=== PATIENT | male | born 1985 | race African-American/Black ===

== ENCOUNTER 2025-03-25 13:01 | Outpatient (AMB) | payer MEDICAID, SELFPAY ==
[2025-03-25 13:05] VITALS: BMI 31.6
--- NOTE | 2025-03-25 13:05 | A.PHYSOV_ITS ---
Vital Signs 03/25/25 13:05 Height 5 ft 10 in Weight 220 lb BMI 31.6 Intake Visit Reasons: NPV NEOS REF- EVAL LUMBAR SPONDYLOSIS Intake Note: Patient is a 39 year old male here today for a new patient consult regarding spondylosis of lumbar spine. Injury in 2010 while at work, which did resolve. Re-injured in [employer] [facility] [employer] [facility] at work but now has been terminated from that job and no workers comp was filed at the time. Allergies No Known Allergies Allergy (Verified 03/25/25 13:10) HPI Comments Details: History of Present Illness The patient is a 39-year-old male presenting with chronic low back pain. The back pain began in 2010 following a work-related injury and has progressively worsened over time. In June of this year, the patient experienced an exacerbation of the pain due to an attack at work. An MRI revealed a lumbar disc bulge, and the patient underwent physical therapy for 6 week, which was ineffective. The patient has been advised to consider lower back surgery but is apprehensive about the procedure. 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 Activities such as raking leaves and shoveling snow exacerbate the pain. The patient also reports erectile dysfunction, which he attributes to possible nerve damage related to his back condition. He has not yet consulted a urologist for this issue. Current pain management includes gabapentin and diclofenac, with pain levels varying from 1 to 6 on a scale of 6 today. The patient experiences pain radiating to both legs, without a consistent pattern of laterality. I reviewed the referring provider's no prior to consultation. Pain Description - Onset: Began in 2010 after a work-related injury - Quality: Chronic, worsening over time - Location: Lower back, radiating to both legs - Exacerbating factors: Physical activities such as raking leaves and shoveling snow - Pain scale: Ranges from 1 to 6 out of 10 Results - Imaging: MRI lumbar spine 10/19/2024 impression: L4-5 there is a disc bulge with superimposed left foraminal disc protrusion impinging on the transitioning the left L4 nerve root. Correlation clinically for left lower extremity radicular complaint. [facility] Surgical History H/O hand surgery (Unknown) H/O foot surgery (Unknown) History of ankle surgery (Unknown) Social History Unable to assess alcohol history related to: Unknown Alcohol intake: current Alcohol intake frequency: does not drink Patient Tobacco Use Status: Never used Tobacco Review of Systems Narrative Review of Systems - Musculoskeletal: Reports chronic low back pain, radiating to both legs - Neurological: Reports erectile dysfunction, denies consistent pattern of pain laterality Physical Exam Exam Exam: Physical Exam Lumbar Spine: Examination of her lumbar spine, there is no visible swelling or deformity. He is tender to lower lumbar facets. He has full range of motion of his lumbar spine. He does have an increase in pain with facet loading. Special Tests: Lhermittes sign was negative Heel Toe walk is normal Left straight leg raise: Positive left Right straight leg raise: Negative Special tests Charlee test is negative Ganslen's test is negative SI Joint compression test negative Milo test negative Piriformis stretch is negative Lower Extremities: Full range of motion bilateral lower extremities. No calf pain or edema. Neuro: Sensation: Intact to lower extremities bilaterally Strength L2 (Psoas): 5/5 on the left and 5/5 on the right. L3 (Quads): 5/5 on the left and 5/5 on the right. L4 (Ant tibialis): 5/5 on the left and 5/5 on the right. L5 (EHL) 5/5 on the left and 5/5 on the right. S1 (Gastroc): 5/5 on the left and 5/5 on the right. DTR L4: (Patellar) Left 2 Right 1 S1: (Achilles) Left 2 Right 2 Babinski Downgoing No pathologic clonus. No involuntary movement. Vital Signs: BMI result Body Mass Index 31.6 Assessment & Plan Assessment & Plan (1) Radiculopathy, lumbar region: Code(s): M54.16 - Radiculopathy, lumbar region Category: Medical (2) Spondylosis: Code(s): M47.9 - Spondylosis, unspecified Category: Medical (3) Erectile dysfunction: Code(s): N52.9 - Male erectile dysfunction, unspecified Category: Medical Qualifiers: Erectile dysfunction type: unspecified Qualified Code(s): N52.9 - Male erectile dysfunction, unspecified Plan Pain Management - Affect: Pain impacts ability to perform physical labor, leading to career change - Analgesia: Current medications include gabapentin and diclofenac; pain levels vary from 1 to 6 - Adverse Effects: No specific adverse effects discussed - Activities of Daily Living: Pain limits ability to perform tasks such as raking leaves and shoveling snow - Aberrant Drug Related Behaviors: No aberrant behaviors reported Plan Patient was informed and verbally consented to the use of an ambient scribe for clinic note documentation during this visit. 1. Chronic Low Back Pain The patient is experiencing chronic low back pain, initially caused by a work- related injury in 2010, which has progressively worsened. An MRI revealed a lumbar disc bulge, and physical therapy was attempted without success. He has failed conservative treatment. I recommend L5-S1 MELINDA he is eager to proceed. We will obtain prior authorization for his injection and contact him once we have done so. 2. Erectile Dysfunction The patient reports erectile dysfunction, which he suspects may be related to nerve damage from his back condition. There is no evidence of nerve compression affecting the groin area, suggesting the issue may not be directly related to the lumbar condition. The patient plans to consult a urologist for further evaluation and management. Discussion Notes During the consultation, we discussed the patient's chronic low back pain and the potential benefits and limitations of a cortisone injection. I explained that the injection would not cure the condition but could reduce inflammation and provide temporary relief for three to six months. We also discussed the risks associated with the procedure, including infection and nerve damage, and the importance of avoiding activities that could worsen the condition. Regarding the patient's erectile dysfunction, I noted that there was no evidence of nerve compression affecting the groin area and recommended a consultation with a urologist for further evaluation. Patient Instructions - Avoid heavy lifting and exercises that may exacerbate back pain. - Schedule a consultation with a urologist for erectile dysfunction evaluation. Coding Level of Care Code Tele New Pt Level 4 (16285) Diagnoses Radiculopathy, lumbar region M54.16 Spondylosis M47.9 Erectile dysfunction, unspecified erectile dysfunction type N52.9 Erectile dysfunction type: unspecified
--- OUTSIDE RECORDS SUMMARY | 2025-03-25 15:42 | XMS_ITS | Clinical Summary ---
Author Organization [facility] Address [address] [place] [id number] Phone Care Team Providers Care Professional Driver Name Role Phone Unavailable Primary Care Provider Unavailabl e Social History Tobacco Use Types Packs/Day Years Used Date Smoking Tobacco: Never Assessed Education Answer Date Recorded Are you interested in more education? Not on wil e 09/09/2022 Are you concerned about learning? Not on file 09/09/2022 No 09/09/2022 No 09/09/2022 Digital Access Answer Date Recorded No 10/10/2022 No 10/10/2022 Reliable internet access at home? Not on file 10/10/2022 Device with a working camera? Not on file Comments Unknown Sex and Gender Information Value Date Recorded Sex Assigned at Not on file Legal Sex Unknown 06/07/2021 12:24 PM EST Gender Identity Not on file Sexual Orientation Not on file Plan of Treatment Not on file Medical Devices Not on file Additional Source Comments The information contained in this document represents components of the legal health record. It is not the complete legal health record.[facility]
--- OUTSIDE RECORDS SUMMARY | 2025-03-25 15:42 | XMS_ITS | Encounter Summary ---
Author Organization [facility] Address [address] [place] [address] Care Team Providers Care Diamond Wheel Molder Name Role Phone Marnie Santiago PA-C Primary Care Provider [phone] Encounter Details Date Type Department Care Team ([facility] st Contact Info) Description 03/20/2025 Interim Notes [address] [id number] Zarina Seg[address] [address] Social History Tobacco Use Types Packs/Day Years Used Date Smoking Tobacco: Never Smokeless Tobacco: Never Alcohol Use Standard Drinks/Week Comments Never 0 (1 standard drink = 0.6 oz pur e alcohol) Social Connections Answer Date Recorded Connectedness 0 11/27/2022 Financial Resource Strain Answer Date R ecorded Financial Resource Strain 0 2022 Stress Answer Date Recorded Stress 0 11/27/2022 Physical Activity Answer Date Recorded Physical Activity 0 01/05/2019 Food Insecurity Answer Date Recorded Food 0 11/27/2022 Transportation Needs Answer Date Record ed Transportation 0 11/27/2022 Housing Stability Answer Date Recorded Housing 0 11/27/2022 Safety and Environment Answer Date Farhad rded Safety 0 11/27/2022 Utilities Answer Date Recorded Utilities 0 11/27/2022 Employment Answer Date Recorded Employment 0 01/05/2019 Sex and Gender Information Value Date Recorded Sex Assigned at Male 05/25/2020 5:28 PM PST Legal Sex Male 10:11 AM PDT Gender Identity Male 05/25/2020 5:28 PM PST Sexual Orientation Straight 05/25/2020 5: 28 PM PST documented as of this encounter Progress Notes * Zarina Segura MA - 03/20/2025 5:37 PM EST You have successfully submitted the Referral for BENY OWEN . The following Referral Authorization Number should be retained in your records. Referral Authorization # [id number] Number of Visits 99 [id number] documented in this encounter Plan of Treatment Not on file documented as of this encounter Visit Diagnoses Not on filedocumented in this encounter Additional Health Concerns Assessment Noted Time PHQ-9 Depression Total Score: 19 025 9:12 AM PDT A Depression follow-up plan has been documented for the patient 03/02/2025 12:01 PM PDT PHQ-2 Depression Total Score: 6 10/14/19 25 9:12 AM PDT documented as of this encounter Care Teams Diamond Wheel Molder Relationship Specialty Start Date End Date Marnie Santiago PA-C [address] [place] [id number] PCP - General Primary Care 12/13/23 documented as of this encounter
--- OUTSIDE RECORDS SUMMARY | 2025-03-25 15:42 | XMS_ITS | Clinical Summary ---
Author Organization [employer] Address [address] [place] [address] Care Team Providers Care Vigoureux Printer Name Role Phone Unavailable Primary Care Provider Unavailabl e Social History Tobacco Use Types Packs/Day Years Used Date Smoking Tobacco: Never Assessed Sex and Gender Information Value Date Recorded Sex Assigned at Not on file Legal Sex Male 2:27 AM EDT Gender Identity Not on file Sexual Orientation Not on file Plan of Treatment Health Maintenance Due Date Last Done Comments Depression Screening 1986 Lipid Panel 1986 SDOH Screening 1986 Disability Screening 1986 Alcohol/Substance Use Screening 1998 Tobacco Screening 1998 Family Planning (PISQ) 2001 HPV Vaccines (1 - Male 3-dose series) 2001 Hepatitis C Screening 2004 COVID-19 Vaccine ( season) 2025 Influenza Vaccine (#1) 2025 , 04/29/2021, 06/17/2018 DTaP/Tdap/Td Vaccines (4 - Td or Tdap) 07/27/2032 07/27/2022, 10/14/2021, 06/17/2018 Zoster Vaccines (1 of 2) 2036 RSV Patients and Patients Aged 60 years or older (1 - 1-dose 75+ series) 2061 Hepatitis B Vaccines Completed 08/28/2022, 07/28/19 HIV Screening Completed 12/24/2024, 10/13, 10/13/2024, Additional history exists HIB Vaccines Aged Out No longer eligi ble based on patient's age to complete this topic Hepatitis A Vaccines Aged Out No long er eligible based on patient's age to complete this topic IPV Vaccines Aged Out No longer eligi ble based on patient's age to complete this topic Meningococcal B Vaccine Aged Out No l onger eligible based on patient's age to complete this topic Meningococcal Vaccine Aged Out No tanvir carmen eligible based on patient's age to complete this topic Pneumococcal Vaccine: Pediatrics (0 to 5 Years) and At-Risk Patients (6 to 49) Years Aged Out No longer eligible based on patient's age to complete this topic RSV under 20 months Aged Out No longe r eligible based on patient's age to complete this topic Rotavirus Vaccines Aged Out No longer eligible based on patient's age to complete this topic
--- OUTSIDE RECORDS SUMMARY | 2025-03-25 15:42 | XMS_ITS | Clinical Summary ---
Author Organization [facility] Address [address] [place] [address] Care Team Providers Care Director Financial Systems Name Role Phone Marnie Santiago PA-C Primary Care Provider [phone] Source Comments PLEASE NOTE, if this patient is a minor, it may be UNLAWFUL to discuss sensitive information that is contained in these records (such as FAMILY PLANNING, MENTAL HEALTH or SUBSTANCE ABUSE) with the minor patient's parent or other person without the patient's specific authorization.[facility] Allergies No known active allergies Medications acetaminophen (TYLENOL) 500 mg tabletIndicatio ns:Left lower quadrant abdominal pain Take 1 Tablet by mouth every 6 (six) hours as needed for pain 40 Tablet 2 Active pantoprazole (PROTONIX) 40 mg EC tabletIndicatio ns:Gastroesopha geal reflux disease without esophagitis Take 1 Tablet by mouth every morning before breakfast 90 Tablet 3 Active escitalopram (LEXAPRO) 10 mg tabletIndicatio ns:Irritable bowel syndrome with diarrhea Take 1 Tablet by mouth once daily 90 Tablet 1 3 Active hydrOXYzine HCL (ATARAX) 10 mg tablet Take 10 mg by mouth 3 (three) times daily. 5 Active ARIPiprazole (ABILIFY) 5 mg tablet Take 5 mg by mouth nightly at bedtime. 5 Active celecoxib (CELEBREX) 200 mg capsule Take 200 mg by mouth once daily. 5 Active sildenafiL (VIAGRA) 100 mg tabletIndicatio ns:Erectile dysfunction, unspecified erectile dysfunction type Take 1 Tablet by mouth once daily as needed for erectile dysfunction. 10 Tablet 5 5 Active emtricitabine-t enofovir, TDF, (TRUVADA) 200-300 mg per tablet Take 1 Tablet by mouth once daily. 90 Tablet 5 Active diclofenac sodium (VOLTAREN) 1 % gelIndications: Chronic lumbosacral pain APPLY 4 G TOPICALLY 2 (TWO) TIMES DAILY. 200 g 5 Active gabapentin (NEURONTIN) 300 mg capsuleIndicati ons:Chronic lumbosacral pain Take 1 Capsule by mouth 2 (two) times daily as needed for other reason (pain). 60 Capsule 1 5 Active ibuprofen 400 mg tabletIndicatio ns:Chronic lumbosacral pain Take 1 Tablet by mouth 4 (four) times daily as needed for pain. 60 Tablet 5 03/02/20 25 Discontinu ed(Cancell ed) Active Problems Problem Noted Date Diagnosed Date Elevated LDL cholesterol level 10/15/2024 Mixed hyperlipidemia 04/03/2023 Food insecurity 11/27/2022 Financial difficulties 11/27/2022 Closed fracture of right talus 06/01/2021 Galeazzi's fracture of right radius, initial encounter for open fracture type I or II 06/01/2021 Open dislocation of metacarp ophalangeal joint of right thumb 06/01/2021 Chronic lumbosacral pain 10/12/2020 Overview (10/22/2024): MRI Lumbar Spine W/O ContrastResult date:10/19/2024 RESULT: MRI Lumbar Spine W/O Contrast MRI Lumbar Spine W/O Contrast INDICATION: Reason: M54.50 CHRONIC LUMBOSACRAL PAIN; Clinical Question(s): Other: Other: TECHNIQUE: MRI of the lumbar spine was performed without intravenous contrast utilizing sagittal T1, sagittal T2, sagittal STIR, axial T1, and axial T2- weighted sequences. COMPARISON: X-ray 05/25/2020 FINDINGS: LOCALIZER: No additional findings on limited localizer images. NUMBERING: The study assumes 5 [id number] lumbar type vertebral bodies. ALIGNMENT, VERTEBRAE, MARROW, AND DISCS: Alignment is normal. Vertebral body heights are preserved. There is no significant marrow signal abnormality. There is mild loss of disc space height along with disc desiccation at L5-S1 with small endplate osteophyte. CONUS: The conus is normal in signal and contour, with normal level of termination at L1. PARASPINAL TISSUES: The paraspinal soft tissues are unremarkable. DETAILED FINDINGS BY LEVEL: L1-L2: No disc protrusion, central canal stenosis, or foraminal narrowing. L2-L3: No disc protrusion, central canal stenosis, or foraminal narrowing. L3-L4: No disc protrusion, central canal stenosis, or foraminal narrowing. L4-L5: There is a diffuse circumferential disc bulge asymmetric to the left with a small superimposed left foraminal disc protrusion which is impinging the transiting left L4 nerve root. No central canal stenosis. The right foramen is patent. L5-S1: There is a circumferential disc bulge with a superimposed shallow central disc protrusion. No mass effect on either S1 nerve root or central canal stenosis. No significant foraminal narrowing. IMPRESSION: At L4-5, there is a disc bulge with a superimposed left foraminal disc protrusion impinging the transiting left L4 nerve root. Correlate clinically for left lower extremity radicular complaint. At L5-S1, there is a shallow central disc protrusion without central canal stenosis or foraminal encroachment. Other levels show no significant degenerative pathology. Erectile dysfunction 07/30/2020 Overview (12/27/2022): Seeing Urology Got started on Cialis 20mg Testerone, PSA levels pending with Urology Assessment & Plan (12/25/2022 2:26 PM EDT): Urology following Viagra 100mg PRN LDL 160 and BMI 30 in 2022 which could be contributing to symptoms. Anxiety 05/25/2020 IBS (irritable bowel syndrome) 05/25/2020 Overview (12/27/2022): H pylori negative 12/2022 Chronic lower back pain 05/25/2020 Encounters Date Type Department Care Team Description 03/20/2025 Interim Notes [facility] [address] [place] [address] Zarina Segura MA 03/02/2025 10:20 AM EDT Office Visit [facility] [address] [place] [phone] Steven Adrian NP 12/24/2024 9:40 AM EDT Telemedicine Visit [facility] [address] [place] [phone] Meredith Pascal FNP-C from Last 3 Months Immunizations Immunization Administration Dates Next Due Flu, Cell Culture based, Pre servative Free, 6m+, Flucelvax 06/17/2018 Flu, Preservative Free 07/27/2022 Hep B,adult,adjuvanted (HEPLISAV) 08/28/2022, INFLUENZA, SEASONAL, INJECTABLE 04/29/2021 MMR (MMR II/Priorix) 08/28/2022,07/28/19 23,10/14/2021,2018 TDAP 07/27/2022,10/14/2021,06/17/2018 Varicella (Varivax), Live Vaccine 08/28/2022, Family History Medical History Relation Name Comments No Known Problems Mother Relation Name Status Comments Brother Alive 4 Father Alive asthma Mother Alive Sister Alive 4, 2 of them wi th belly symtopms Social History Tobacco Use Types Packs/Day Years Used Date Smoking Tobacco: Never Smokeless Tobacco: Never Tobacco Cessation:Counseling Given: Not Answered Alcohol Use Standard Drinks/Week Comments Never 0 [...] Orientation Straight 05/25/2020 5: 28 PM PST Last Filed Vital Signs Vital Sign Reading Time Taken Comments Blood Pressure 125/84 03/02/2025 10:21 AM EDT Pulse 85 03/02/2025 10:21 AM EDT Temperature 36.7 C (98 F) 03/02/2025 10:21 AM EDT Respiratory Rate 16 03/02/2025 10:21 AM EDT Oxygen Saturation 96% 03/02/2025 10:21 AM EDT Inhaled Oxygen Concentration - - Weight 101.6 kg (224 lb) 03/02/2025 10:21 AM EDT Height 177.8 cm (5' 10 ) 03/02/2025 10:21 AM EDT Body Mass Index 32.14 03/02/2025 10:21 AM EDT Plan of Treatment Health Maintenance Due Date Last Done Comments Dental FMX/Pano 1986 Dental BW 11/25/2023 11/22/2022 Dental Examination 11/25/2023 11/22/2022 Dental Perio Charting 11/25/2023 11/22/2022 Dental Prophy 11/30/2023 11/27/2022 Imm-HPV (2 - 3-dose SCDM series) 11/10/2024 10/14/19 [id number] ( season) 2025 04/29/2021, 09/22/2020, 08/25/2020 Imm-Influenza (#1) 2025 07/27/2022, 1 06/30/2020, 06/17/2018 Depression Monitoring 01/13/2025 10/13/2024 , 06/27/2022, 05/25/2020 Annual Wellness (Adult): Indicated (All Coverage) 10/13/2025 10/13/2024, 10/13/2024, 06/27/2022, Additional history exists Anxiety Screening 10/13/2025 10/13/2024 Diabetes Screening 10/13/2025 10/13/2024, 0 10/13/2024, 06/27/2022, Additional history exists Lipid Screening 12/24/2025 12/24/2024, 06/0 06/2024, 06/27/2022, Additional history exists Hypertension Screening (#1) 03/02/2026 Tobacco Screening 03/02/2026 03/02/2025 Imm-DTaP/Tdap/Td (4 - Td or Tdap) 07/27/2032 07/27/2022, 10/14/2021, 06/17/2018 Alcohol and Drug Screen Completed 10/14/19, 06/27/2022, 05/25/2020 Hepatitis C Screening Completed 10/13/2024 , 11/27/2022, 05/25/2020 HIV Screening Completed 12/24/2024, 062 08/2024, 10/13/2024, Additional history exists Syphilis Screening Discontinued 12/24/2024, 0 10/13/2024, 11/27/2022, Additional history exists Procedures Procedure Name Priority Date/Time Associated Diagnosis Comments URINE CULTURE W ID & SENS Routine 12/24/2024 10:04 AM EDT LIPID PANEL Routine 12/24/2024 10:04 AM EDT RFLX - REFLEXIVE URINE CULTURE Routine 12/24/2024 10:04 AM EDT URINALYSIS, COMPLETE W/REFLEX TO CULTURE Routine 12/24/2024 10:04 AM EDT HIV 1/2 AG & AB W/RFLX (4TH GEN) Routine 12/24/2024 10:04 AM EDT Screen for STD (sexually transmitted disease) Hx of chlamydia infection RPR (MONITOR) W/REFL TITER Routine 12/24/2024 10:04 AM EDT Screen for STD (sexually transmitted disease) Hx of chlamydia infection C TRACHOMATIS/N GONORRHOEAE RNA,TMA Routine 12/24/2024 10:04 AM EDT Screen for STD (sexually transmitted disease) Hx of chlamydia infection HEPATITIS C AB W/RFLX HCV RNA, QT, RT PCR Routine 10/13/2024 9:46 AM EDT Unprotected sexual intercourse HGBA1C W/MPG Routine 10/13/2024 9:46 AM EDT Annual physical exam Full PROPHYLAXIS - ADULT Routine 11/27/2022 3:40 PM EDT Chronic gingivitis, plaque induced COMP PERIODONTAL EVALUATION - NEW/EST PATIENT Routine 11/22/2022 3:40 PM EDT Caries of enamel (incipient) Caries BITEWINGS - FOUR RADIOGRAPHIC IMAGES Routine 11/22/2022 3:40 PM EDT Caries of enamel (incipient) Caries Full PERIODIC ORAL EVALUATION ESTABLISHED PATIENT Routine 11/22/2022 3:40 PM EDT Caries of enamel (incipient) Caries from Last 3 Months or Most Recently Relevant to Health Maintenance Results * HIV 1/2 AG & AB W/RFLX (4TH GEN) Routine (12/24/2024 10:04 AM EDT) HIV Screen Final SEE NOTE 12/25/2024 4:56 AM EDT [facility] HIV AG/AB, 4TH GEN NON-REACT LESLY NON-REACT LESLY 12/25/2024 4:56 AM EDT [facility] Blood Blood / Unknown 12/24/2024 1 0:04 AM EDT 12/25/2024 2:47 AM EDT Narrative [employer] - 12/25/2024 5:20 AM EDT HIV Negative . HIV-1 antigen and HIV-1/HIV-2 antibodies were not detected. There is no laboratory evidence of HIV infection. Meredith Pascal [facility] - BLOOD DRAW Final Re sult [employer] [address] [place] [address], [facility] [address] [place] [phone] * CHLAMYDIA/NEISSERIA GONORRHOEAE RNA, TMA, UROGENITAL Urine Urine Routine (12/24/2024 10:04 AM EDT) CHLAMYDIA TRACHOMATIS RNA, TMA NOT DETECTED NOT DETECTED 12/25/2024 7:04 PM EDT [facility] NEISSERIA GONORRHOEAE RNA, TMA NOT DETECTED NOT DETECTED 12/25/2024 7:04 PM EDT [facility] Urine Urine specimen / Unknown 12/24/2024 10:04 AM EDT 12/25/2024 7:02 [address] [facility] - 12/25/2024 7:13 PM EDT The analytical performance characteristics of this assay, when used to test SurePath(TM) specimens have been determined by [employer]. The modifications have not been cleared or approved by the FDA. This assay has been validated pursuant to the CLIA regulations and is used for clinical purposes. . For additional information, please refer to https://education.HeyStaks/faq/WAD560 (This link is being provided for information/ educational purposes only.) . [employer] [facility] BODY FLUIDS AND STOOL S AMBULATORY Final Result Performing Organization Address [facility] de Phone Number [employer] [address] [place] [address], [email or web address] [address] [phone] * URINE CULTURE W ID & SENS Routine (12/24/2024 10:04 AM EDT) Micro Number [id number] 12/25/2024 10:19 PM EDT [facility] SPECIMEN QUALITY Adequate 12/25/2024 10:19 PM EDT [facility] SOURCE: URINE 12/25/2024 10:19 PM EDT [facility] STATUS: FINAL 12/25/2024 10:19 PM EDT [facility] RESULT No Growth 12/25/2024 10:19 PM EDT [facility] 12/24/2024 10:0 4 AM EDT 12/24/2024 10:04 AM EDT [employer] [facility] - MICROBIOLOGY AMBULA TORY Final Result Performing Organization Address [facility] Co de Phone Number [employer] [address] [address], [place] [email or web address] [address] [address] * (ABNORMAL) URINALYSIS, COMPLETE W/REFLEX TO CULTURE Routine (12/24/2024 10:04 AM EDT) COLOR YELLOW YELLOW 12/25/2024 3:17 AM [email or web address] [facility] APPEARANCE CLEAR CLEAR 12/25/2024 3:17 AM [email or web address] [place] [facility] SPECIFIC GRAVITY 1.023 1.001 - 1.035 12/25/2024 3:17 AM [employer] [facility] URINE PH 5.5 5.0 - 8.0 12/25/2024 3:17 AM [employer] [place] GLUCOSE NEGATIVE NEGATIVE 12/25/2024 3:17 AM [email or web address] [facility] BILIRUBIN NEGATIVE NEGATIVE 12/25/2024 3:17 AM [employer] [place] KETONES NEGATIVE NEGATIVE 12/25/2024 3:17 AM [employer] [facility] OCCULT BLOOD NEGATIVE NEGATIVE 12/25/2024 3:17 AM [employer] [facility] URINE PROTEIN NEGATIVE NEGATIVE 12/25/2024 3:17 AM [employer] [facility] NITRITE NEGATIVE NEGATIVE 12/25/2024 3:17 AM [employer] [facility] LEUKOCYTE ESTERASE 1+(A) NEGATIVE 12/25/2024 3:17 AM [employer] [facility] URINE LEUKOCYTES NONE SEEN 0 - 5 /HPF 12/25/2024 3:17 AM [employer] [facility] RBC NONE SEEN 0 - 2 /HPF 12/25/2024 3:17 AM [employer] [facility] SQUAMOUS EPITHELIAL CELLS NONE SEEN < OR = 5 /HPF 12/25/2024 3:17 AM [employer] [facility] BACTERIA NONE SEEN NONE SEEN /HPF 12/25/2024 3:17 AM [employer] [place] HYALINE CAST NONE SEEN NONE SEEN /LPF 12/25/2024 3:[address] [facility] SEE NOTE SEE NOTE 12/25/2024 3:[address] [facility] 12/24/2024 10:0 4 AM EDT 12/25/2024 2:55 AM EDT [employer] [facility] - 12/25/2024 3:17 AM EDT This urine was analyzed for the presence of WBC, RBC, bacteria, casts, and other formed elements. Only those elements seen were reported. . . [employer] LAB URINE AMBULATORY Glo l Result Performing Organization Address [facility]/ZIP Co de Phone Number LS[address] [address], [email or web address] [address] [address] * RFLX - REFLEXIVE URINE CULTURE Routine (12/24/2024 10:04 AM EDT) REFLEXIVE URINE CULTURE SEE NOTE 12/25/2024 3:17 AM EDT [facility] 12/24/2024 10:0 4 AM EDT 12/25/2024 2:55 AM [address]T [address] [facility] - 12/25/2024 3:17 AM EDT CULTURE INDICATED - RESULTS TO FOLLOW [facility] LAB - MICROBIOLOGY AMBULA TORY Final Result Performing Organization Address [facility] de Phone Number LS[address] [address], [email or web address] [address] [address] * RPR (MONITOR) W/REFL TITER Routine (12/24/2024 10:04 AM EDT) RPR (MONITOR) W/REFL TITER NON-REACT LESLY NON-REACT LESLY 12/25/2024 11:23 AM EDT [facility] Blood Blood / Unknown 12/24/2024 1 0:04 AM EDT 12/25/2024 2:55 AM EDT [employer] LAB - BLOOD DRAW Final Re sult Performing Organization Address [facility] Co de Phone Number LS[address] [address], [email or web address] [address] [address] * (ABNORMAL) LIPID PANEL Routine (12/24/2024 10:04 AM EDT) CHOLESTEROL, TOTAL 216(H) <200 mg/dL 12/25/2024 3:53 AM EDT LS[facility] HDL CHOLESTEROL 41 > OR = 40 mg/dL 12/25/2024 3:53 AM EDT [facility] TRIGLYCERIDES 191(H) <150 mg/dL 12/25/2024 3:53 AM EDT [facility] LDL-CHOLESTEROL 142(H) mg/dL (calc) 12/25/2024 3:53 AM EDT [facility] CHOL/HDLC RATIO 5.3(H) <5.0 (calc) 12/25/2024 3:53 AM EDT LS[facility] NON-HDL CHOLESTEROL 175(H) <130 mg/dL (calc) 12/25/2024 3:53 AM EDT [facility] 12/24/2024 10:0 4 AM EDT 12/25/2024 2:32 AM EDT Narrative [facility] - 12/25/2024 3:54 AM EDT Reference range: <100 . Desirable range <100 mg/dL for primary prevention; <70 mg/dL for patients with CHD or diabetic patients with > or = 2 CHD risk factors. . LDL-C is now calculated using the Lauro-Chuy calculation, which is a validated novel method providing better accuracy than the Friedewald equation in the estimation of LDL-C. Lauro SS et al. OSWALDO. 2013;310(19): 9914-2427 (http://education.[employer]/faq/BRQ491) For patients with diabetes plus 1 major ASCVD risk factor, treating to a non-HDL-C goal of <100 mg/dL (LDL-C of <70 mg/dL) is considered a therapeutic option. us Meredith Pascal [facility] LAB - BLOOD DRAW Final Re sult LS9 [address] [address], [address] [address] * HEPATITIS C AB W/RFLX HCV RNA, QT, RT PCR Routine (10/13/2024 9:46 AM EDT) HEPATITIS C ANTIBODY NON-REACT LESLY NON-REACT LESLY [facility] Comment: HCV antibody was non-reactive. There is no laboratory evidence of HCV infection. In most cases, no further action is required. However, if recent HCV exposure is suspected, a test for HCV RNA (test code 17835) is suggested. For additional information please refer to http://education.HeyStaks/faq/RQO35b5 (This link is being provided for informational/ educational purposes only.) Blood Blood / Unknown 10/13/2024 9 :46 AM EDT 10/13/2024 9:47 AM EDT Marnie Santiago PA-C LAB - BLOOD DRAW Edited Res ult - Final [employer] [address] [address], [facility] [address] [place] [address] * HGBA1C W/MPG Routine (10/13/2024 9:46 AM EDT) Pathologist [facility] HEMOGLOBIN A1C 5.6 <5.7 % [facility] Comment: For the purpose of screening for the presence of diabetes: <5.7% Consistent with the absence of diabetes 5.7-6.4% Consistent with increased risk for diabetes (prediabetes) > or =6.5% Consistent with diabetes This assay result is consistent with a decreased risk of diabetes. Currently, no consensus exists regarding use of hemoglobin A1c for diagnosis of diabetes in children. According to [place] Diabetes Association (ADA) guidelines, hemoglobin A1c <7.0% represents optimal control in non- diabetic patients. Different metrics may apply to specific patient populations. Standards of Medical Care in Diabetes(ADA). MEAN PLASMA GLUCOSE 122 mg/dL (calc) [facility] Blood Blood / Unknown 10/13/2024 9 :46 AM EDT 10/13/2024 9:47 AM EDT Marnie Santiago PA-C LAB - BLOOD DRAW Edited Res ult - Final [facility] [address] [address], [facility] [address] [place] [address] from Last 3 Months or Most Recently Relevant to Health Maintenance Insurance [place] NET D[employer] [address] [employer] Care Teams Director Financial Systems Relationship Specialty Start Date End Date Marnie Santiago PA-C [address] [place] [address] PCP - General Primary Care 12/13/23
--- OUTSIDE RECORDS SUMMARY | 2025-03-25 15:42 | XMS_ITS | Data Portability ---
Author Organization JUDA[facility] Ramos s, [address] Address [address] [place] [address] Assessment No assessment recorded. Plan of Treatment Reminders Order Date Submit Date Provider Last Modified By Organization Details Last Modified Time Details Appointments None recorded. Lab None recorded. Referral None recorded. Procedures None recorded. Surgeries None recorded. Imaging None recorded. Medication Orders Aplisol 5 tub. unit/0.1 mL intradermal injection solution 2023 024 [email or web address] Not available 4 08:07:02 Tubersol 5 tub. unit/0.1 mL intradermal injection solution 2022 023 [email or web address] Not available 3 09:05:45 Patient TargetsNo targets recorded. Patient InstructionsNo instructions recorded. Reason for Referral None Reported. Problems No Known Problems Medical Equipment None Reported. Allergies No known drug allergies Medications Name Sig Start Date Stop Date Status Note LastModified by Organization Details LastModified Time ondansetro n HCl 4 mg tablet TAKE 1 TABLET BY MOUTH EVERY 8 HOURS active Not Available Not Available No t Available Aplisol 5 tub. unit/0.1 mL intraderma l injection solution Inject 0.1 mL by intraderm al route. 2023 active Billable units for PPD is one. Units are not the dose. Not Available Not Available Not Available acetaminop hen 500 mg tablet TAKE 2 TABLETS BY MOUTH EVERY 8 HOURS NEEDED FOR PAIN active Not Available Not Available No t Available aspirin 325 mg tablet,del ayed release TAKE 1 TABLET BY MOUTH EVERY DAY FOR 30 DAYS active Not Available Not Available No t Available oxycodone 5 mg tablet TAKE 1 TABLET BY MOUTH EVERY 4 HOURS NEEDED FOR PAIN active Not Available Not Available No t Available Vitals Date Recorded Body height Body mass index (BMI) Body weight Oxygen saturation Oxygen saturation in Arterial blood by Pulse oximetry Heart rate Respiratory rate Systolic And Diastolic Provider Name and Address Organization Details Last Updated DateTime 3 177.8 cm 30.6 kg/m2 85170.1 7 g 99 % 99 % 93 /min 16 /min 126/82 mm[Hg] BELLA MARTINEZ PA - [facility] 3 15:32:46 Social History None recorded. Functional Status None recorded. Mental Status None recorded. Family History Relationship Description Onset Age of this Age Resolved Age Notes LastModified by Organization Details LastModified Time Father No current problems or disability [email or web address] Not available 07/27 15:33:27 Mother No current problems or disability [email or web address] Not available 07/27 15:33:27 Medical History No medical history recorded. Past Encounters Encounter ID Performer Location Encounter Start Date Encounter Closed Date Diagnosis/Indication Diagnosis SNOMED-CT Code Diagnosis ICD10 Code Diagnosis IMO Codes Diagnosis Note [id number] [address] [place] [address] 05/22/2020 10:42:23 05/22/2020 11:42:49 [id number] Hever Murphy MD [address] [place] [address] 07/27/2022 14:56:41 07/27/2022 16:20:40 History and physical examination, pre-employment 669467122 Z02.1 [id number] Hever Murphy MD [address] [place] [address] 08/11/2022 08:05:54 08/11/2022 09:09:30 Tuberculosis screening 916531087 Z11.1 [id number] JUDAH LUNDY [address] [place] [address] 04/04/2024 09:07:08 04/04/2024 09:32:10 Tuberculosis screening [id number] Z11.1 Health Concerns Section Related Observation LastModified by Organization Dao ls LastModified Time None Recorded Concern Status LastModified by Organization Details LastModified Time None Recorded Advance Directives Directive None Recorded Payers Insurance Date Sequence Insurance Name Policy Number Policy Aguilar Covered Member ID Aguilar Member ID Guarantor Name 04/04/2024 OC-PAY AT TIME OF SERVICE 2022 eBny Owen [id number] Beny Owen 04/04/2024 [facility] 04/04/2024 [facility]
--- OUTSIDE RECORDS SUMMARY | 2025-03-25 15:42 | XMS_ITS | Encounter Summary ---
Author Organization [facility] Address [address] [place] [address] Care Team Providers Care Civil Defense Director Name Role Phone Marnie Santiago PA-C Primary Care Provider [phone] Encounter Details Date Type Department Care Team ([facility] st Contact Info) Description 03/10/2022 Dental Interim Note [facility] [address] [place] [id number] Ilene Elias DMD [address] [place] [address] Social History Tobacco Use Types Packs/Day Years Used Date Smoking Tobacco: Never Smokeless Tobacco: Never Alcohol Use Standard Drinks/Week Comments Never 0 (1 standard drink = 0.6 oz pur e alcohol) Social Connections Answer Date Recorded Social Connections and Isolation 0 01/05/2019 Financial Resource Strain Answer Date R ecorded Financial Resource Strain 0 2018 Stress Answer Date Recorded Stress 0 01/05/2019 Physical Activity Answer Date Recorded Physical Activity 0 01/05/2019 Food Insecurity Answer Date Recorded Food 0 01/05/2019 Transportation Needs Answer Date Record ed Transportation 0 01/05/2019 Housing Stability Answer Date Recorded Housing 0 01/05/2019 Safety and Environment Answer Date Farhad rded Safety 0 01/05/2019 Utilities Answer Date Recorded Utilities 0 01/05/2019 Employment Answer Date Recorded Employment 0 01/05/2019 Sex and Gender Information Value Date Recorded Sex Assigned at Male 05/25/2020 5:28 PM PST Legal Sex Male 10:11 AM PDT Gender Identity Male 05/25/2020 5:28 PM PST Sexual Orientation Straight 05/25/2020 5: 28 PM PST documented as of this encounter Plan of Treatment Not on file documented as of this encounter Visit Diagnoses Not on filedocumented in this encounter Additional Health Concerns Assessment Noted Time PHQ-9 Depression Total Score: 1 05/25/19 10:03 AM PST PHQ-2 Depression Total Score: 0 05/25/19 10:03 AM PST documented as of this encounter Care Teams Civil Defense Director Relationship Specialty Start Date End Date Marnie Santiago PA-C [address] [place] [id number] PCP - General Primary Care 12/13/23 documented as of this encounter
== END 2025-03-25 13:58 | disposition home or self-care (01) ==
LOC: HO.HPHYS 13:01
PROVIDERS: PCP Student in an Organized Health Care Education/Training Program; Visit Provider Physician Assistant
DX: M54.16 Radiculopathy, lumbar region (principal); M47.9 Spondylosis, unspecified; N52.9 Male erectile dysfunction, unspecified
CPT/HCPCS: 99204

== ENCOUNTER → 2025-03-25 13:01 | Outpatient (BNVA) | payer MEDICAID, SELFPAY | PROVIDERS: PCP Student in an Organized Health Care Education/Training Program; Visit Provider Physician Assistant | DX: M54.16 Radiculopathy, lumbar region (principal); M47.9 Spondylosis, unspecified; N52.9 Male erectile dysfunction, unspecified | CPT/HCPCS: 99202 ==

== ENCOUNTER 2025-04-17 07:47 | Outpatient (REF) | payer MEDICAID, SELFPAY | END 2025-04-17 07:48 | disposition home or self-care (01) | LOC: HO.HPHYSR 07:47 | PROVIDERS: PCP Student in an Organized Health Care Education/Training Program; Visit Provider Physical Medicine & Rehabilitation | DX: M54.16 Radiculopathy, lumbar region (principal) | CPT/HCPCS: 62323; J2003; J3301; Q9967 ==

== ENCOUNTER 2025-04-17 07:47 | Outpatient (AMB) | payer MEDICAID, SELFPAY ==
[2025-04-17 07:47] VITALS: PULSE 101; TEMP 36.9; BMI 31.6
--- NOTE | 2025-04-17 07:47 | A.PHYSOV_ITS ---
Vital Signs 04/17/25 07:47 Height 5 ft 10 in Weight 220 lb BMI 31.6 Pulse 101 H Temp 98.5 F Intake Visit Reasons: Lumbar Interlaminar Epidural Injection L5-S1 Intake Note: Patient is a 39 year old male in office today for a L5-S1 interlaminar epidural injection. 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 Allergies No Known Allergies Allergy (Verified 04/17/25 07:48) [facility] Surgical History H/O hand surgery (Unknown) H/O foot surgery (Unknown) History of ankle surgery (Unknown) Social History Alcohol intake: current Alcohol intake frequency: does not drink Patient Tobacco Use Status: Never used Tobacco Current occupational status: unemployed Physical Exam Vital Signs: Last Vital Signs Temp 98.5 F 04/17/25 07:47 Pulse 101 H 04/17/25 07:47 BMI result Body Mass Index 31.6 Office Procedures Procedure Details: Procedure performed: L5-S1 lumbar epidural steroid injection Preop diagnosis: Lumbar radiculitis Postop diagnosis: The same Anesthesia: Local After informed consent was obtained patient was brought into the procedure room and placed in the prone position on the procedure table. Skin over the lumbar sacral area was prepped and draped in usual sterile manner. L5-S1 interlaminar space was visualized utilizing fluoroscopy. After skin was anesthetized with 1% lidocaine solution, 3.5 in 20 gauge Toughy needle was introduced percutaneously and advanced toward the epidural space at the indicated level. Loss of resistance technique was utilized. Needle placement was verified utilizing 3 cc of Omnipaque contrast solution. Excellent epidural spread was visualized without evidence of vascular uptake. Total volume of 8 cc containing 2 cc of 1% lidocaine, 40 mg of triamcinolone and normal saline solution were injected after negative aspiration for blood and cerebrospinal fluid. Radiation exposure was documented in the chart. 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 Administered by: New Borrero DO on 04/17/25 08:03 Dose Route Admin Location Dispensed Lot Number Expiration Date [facility] Financial Reporting Accountant 50 mg epidural 5 mL [id number] [place] [employer] Total Dispensed Waste 5 mL 0 % Omnipaque 300 300 mg iodine/mL intravenous solution Performing Provider: New Borrero DO Performing Location: [facility] Administered by: New Borrero DO on 04/17/25 08:03 Dose Route Admin Location Dispensed Lot Number Expiration Date [facility] Financial Reporting Accountant 3 mL epidural 10 mL [id number] [employer] Total Dispensed Waste 10 mL 70 % Assessment & Plan Assessment & Plan (1) Radiculopathy, lumbar region: Code(s): M54.16 - Radiculopathy, lumbar region Category: Medical Plan Procedure Orders: Orders FL Gd L Spine Interlaminar Inj Today M54.16 - Radiculopathy, lumbar region AMB Lumbar Interlaminar Epidural Steroid Injection Today M54.16 - Radiculopathy, lumbar region Coding Level of Care Code Procedure Only Diagnoses Radiculopathy, lumbar region M54.16 CPT Codes Lumbar Interlaminar Epidural Steroid I - 61671 - Lumbar Interlaminar Epidural: Lumbar Interlaminar Epidural Steroid Injection 48407 ([id number])
== END 2025-04-17 08:22 | disposition home or self-care (01) ==
LOC: HO.HPHYS 07:47
PROVIDERS: PCP Student in an Organized Health Care Education/Training Program; Visit Provider Physical Medicine & Rehabilitation
DX: M54.16 Radiculopathy, lumbar region (principal)
CPT/HCPCS: 62323